=== PATIENT | male | born 1965 | race Caucasian/White ===

== ENCOUNTER → 2017-06-14 | Outpatient (CLI) | payer OTHER ==
[~2017-06-14] MED LIST: ASPIRIN CHEWABL81 MG PO; CRESTOR20 MG PO; FLEXERIL 10 MG10 MG PO; LYRICA200 MG PO; METFORMIN HCL1000 M1 PO; NITROSTAT 0.40.4 MG SL; NOVOLOG100 UNIT/1 SQ; TOUJEO SQ; ULTRAM50 MG PO
== END ==
LOC: NM 08:53
DX: R07.9 Chest pain, unspecified (principal)
CPT/HCPCS: 78452; 93017; A9502; J2785

== ENCOUNTER → 2020-11-10 | Outpatient (CLI) | payer BC, OTHER ==
[~2020-11-10] MED LIST changes: +CIPRO500 MG PO; +FLAGYL500 MG PO; +FLOMAX 0.4 MG0.4 MG PO; +GLUCOPHAGE1000 MG PO; -METFORMIN HCL1000 M1 PO; +METOPROLOL TART25 MG PO; +MIRALAX17 GM PO; +NORCO 5-325 TA1 EACH PO
== END ==
LOC: EXRD 08:39
DX: K74.60 Unspecified cirrhosis of liver (principal); N28.89 Other specified disorders of kidney and ureter; K76.0 Fatty (change of) liver, not elsewhere classified; R16.1 Splenomegaly, not elsewhere classified
CPT/HCPCS: 76700

== ENCOUNTER → 2021-06-08 | Outpatient (CLI) | payer BC | LOC: RAD 09:39 | DX: J98.11 Atelectasis (principal) | CPT/HCPCS: 71046 ==

== ENCOUNTER → 2021-07-12 | Outpatient (CLI) | payer BC | LOC: CT 08:19 | DX: J98.11 Atelectasis (principal) | CPT/HCPCS: 71260; Q9967 ==

== ENCOUNTER 2021-12-07 15:45 | Emergency (ER) | payer BC ==
[2021-12-07 17:19] LABS: HEMOGLOBIN 14.5 gm/dl (14.0-17.5); WHITE BLOOD COUNT 5.3 K/UL (4.5-11.0)
[2021-12-07 17:41] LABS: BUN/CREATININE RATIO 8 (0-10)
== END 2021-12-07 19:20 | disposition home or self-care (01) ==
LOC: ER1 15:45
PROVIDERS: Nurse Practitioner
DX: S06.0X9A Concussion with loss of consciousness of unspecified duration, initial encounter (principal); S00.81XA Abrasion of other part of head, initial encounter; I11.0 Hypertensive heart disease with heart failure; E11.9 Type 2 diabetes mellitus without complications; M25.531 Pain in right wrist; W17.89XA Other fall from one level to another, initial encounter; Y92.009 Unspecified place in unspecified non-institutional (private) residence as the place of occurrence of the external cause
CPT/HCPCS: 29125; 70450; 71045; 72125; 73110; 80053; 82550; 82553; 84484; 85025; 93005; 99284

== ENCOUNTER → 2022-01-03 | Outpatient (CLI) | payer BC | LOC: RAD 07:31 | DX: M54.50 Low back pain, unspecified (principal); M25.532 Pain in left wrist; M25.78 Osteophyte, vertebrae | CPT/HCPCS: 72110; 73110; 73130 ==

== ENCOUNTER → 2022-01-13 | Outpatient (CLI) | payer BC | LOC: CT 08:49 | DX: R11.10 Vomiting, unspecified (principal); N13.1 Hydronephrosis with ureteral stricture, not elsewhere classified; N28.9 Disorder of kidney and ureter, unspecified; K74.60 Unspecified cirrhosis of liver | CPT/HCPCS: 74170; Q9967 ==

== ENCOUNTER → 2022-01-19 | Outpatient (CLI) | payer BC | LOC: KOH-I 10:56 | DX: N13.2 Hydronephrosis with renal and ureteral calculous obstruction (principal); N13.4 Hydroureter | CPT/HCPCS: 74176 ==

== ENCOUNTER → 2022-01-25 | Outpatient (CLI) | payer BC | LOC: MRI 11:35 | DX: S09.90XA Unspecified injury of head, initial encounter (principal); X58.XXXA Exposure to other specified factors, initial encounter | CPT/HCPCS: 70553; A9577 ==

== ENCOUNTER → 2022-01-31 | Outpatient (CLI) | payer BC | LOC: KOH-I 08:30 | DX: M51.37 Other intervertebral disc degeneration, lumbosacral region (principal); M51.26 Other intervertebral disc displacement, lumbar region; M48.07 Spinal stenosis, lumbosacral region; M48.061 Spinal stenosis, lumbar region without neurogenic claudication | CPT/HCPCS: 72131 ==

== ENCOUNTER → 2022-05-01 | Outpatient (CLI) | payer BC | LOC: KOH-I 12:28 | DX: M25.50 Pain in unspecified joint (principal); M19.031 Primary osteoarthritis, right wrist | CPT/HCPCS: 73110; 73130 ==

== ENCOUNTER → 2022-05-17 | Outpatient (CLI) | payer BC | LOC: KOH-I 08:16 | DX: M54.2 Cervicalgia (principal); M25.50 Pain in unspecified joint | CPT/HCPCS: 72040; 73130 ==